=== PATIENT | male | born 1985 | race Caucasian/White ===

== ENCOUNTER 2017-12-18 15:47 | Emergency (ER) | payer OTHER ==
[2017-12-18 16:02] VITALS: RESP 18; TEMP 98.5
[2017-12-18] MEDS ORDERED: predniSONE 50 MG TAB PO STA (16:36)
--- NOTE | 2017-12-18 16:42 | ED ---
General Adult HPI - General Chief complaint: ENT Stated complaint: Sore Throat Time Seen by Provider: 12/18/17 16:26 Source: patient, RN notes reviewed Mode of arrival: ambulatory Limitations: no limitations - History of Present Illness Initial comments: Patient is a 32-year-old male who presents emergency room today with chief complaint of sore throat that started this morning. Patient does admit that hurts when he swallows. He doesn't some pressure in the left ear. Patient denies any other complaints or symptoms. Patient denies any recent fever, chills , shortness of breath, chest pain, back pain, abdominal pain, nausea or vomiting , numbness or tingling, headaches or visual changes, or any other complaints. - Related Data Previous Rx's Medication Instructions Recorded Amoxicillin 500 mg PO Q8H 10 Days day 12/18/17 predniSONE 50 mg PO DAILY #3 tab 12/18/17 Allergies Allergy/AdvReac Type Severity Reaction Status Date / Time No Known Allergies Allergy Verified 12/18/17 16:26 Review of Systems ROS Statement: Those systems with pertinent positive or pertinent negative responses have been documented in the HPI. ROS Other: All systems not noted in ROS Statement are negative. Past Medical History Past Medical History: No Reported History Additional Past Medical History / Comment(s): Patient states his blood pressure is normally high, diastolic above 100. He does not have a PCP and doesn't take any meds for it. History of Any Multi-Drug Resistant Organisms: None Reported Past Surgical History: Cholecystectomy Past Anesthesia/Blood Transfusion Reactions: No Reported Reaction Past Psychological History: ADD/ADHD, Anxiety, Bipolar, Depression, PTSD Smoking Status: Current every day smoker Past Alcohol Use History: None Reported Past Drug Use History: Marijuana - Past Family History Mother Family Medical History: Hypertension Additional Family Medical History / Comment(s): Mental health issues. Father History Unknown: Yes General Exam - General Exam Comments Initial Comments: General: The patient is awake and alert, in no distress, and does not appear acutely ill. Eye: Pupils are equal, round and reactive to light, extra-ocular movements are intact. No nystagmus. There is normal conjunctiva bilaterally. No signs of icterus. Ears, nose, mouth and throat: There are moist mucous membranes and no oral lesions. Patient does have 2+ tonsils with positive exudate. Uvula midline. Patient swallows without any difficulty. Tolerating oral secretions. Neck: The neck is supple, there is no tenderness or JVD. Cardiovascular: There is a regular rate and rhythm. No murmur, rub or gallop is appreciated. Respiratory: Lungs are clear to auscultation, respirations are non-labored, breath sounds are equal. No wheezes, stridor, rales, or rhonchi. Musculoskeletal: Normal ROM, no tenderness. Strength 5/5. Sensation intact. Pulses equal bilaterally 2+. Neurological: A&O x 3. CN II-XII intact, There are no obvious motor or sensory deficits. Coordination appears grossly intact. Speech is normal. Skin: Skin is warm and dry and no rashes or lesions are noted. Psychiatric: Cooperative, appropriate mood & affect, normal judgment. Limitations: no limitations Course Vital Signs 12/18/17 16:00 Temperature 98.5 F Pulse Rate 90 Respiratory 18 Rate Blood Pressure 135/81 O2 Sat by Pulse 99 Oximetry Medical Decision Making - Medical Decision Making Patient will given dose of steroids here in the emergency room also started on antibiotics for strep throat infection Disposition Clinical Impression: Acute pharyngitis Disposition: HOME SELF-CARE Condition: Good Instructions: Strep Throat (ED) Additional Instructions: Please use medication as discussed. Please follow-up with family doctor in the next 2 days of symptoms have not improved. Please return to emergency room if the symptoms increase or worsen or for any other concerns. Prescriptions: Amoxicillin 500 mg PO Q8H 10 Days day predniSONE 50 mg PO DAILY #3 tab Referrals: None,Stated [Primary Care Provider] - 1-2 days Time of Disposition: 16:40
[2017-12-18] MEDS ORDERED: ACETAMINOPHEN TAB 500 MG TAB PO STA (17:33)
[2017-12-18] MEDS ORDERED: IBUPROFEN 600 MG TAB PO STA (17:33)
[2017-12-18 18:21] VITALS: BP 144/94; PULSE 86
== END 2017-12-18 18:17 | disposition home or self-care (01) ==
LOC: EC 15:47
DX: J02.9 Acute pharyngitis, unspecified (principal); F17.200 Nicotine dependence, unspecified, uncomplicated
CPT/HCPCS: 99283; J7512

== ENCOUNTER → 2018-04-04 | Outpatient (CLI) | payer OTHER ==
--- NOTE | 2018-04-04 10:21 | XR ---
EXAMINATION TYPE: XR foot complete LT, XR ankle complete LT DATE OF EXAM: 04/04/2018 CLINICAL HISTORY: Pain and swelling after football injury this a.m. TECHNIQUE: Frontal, lateral and oblique images of the left ankle and foot are obtained. COMPARISON: None FINDINGS: There is no acute fracture/dislocation evident in the left foot. The joint spaces in the left foot appear within normal limits. The overlying soft tissue appears unremarkable. There is no a cute fracture/dislocation evident in the left ankle. The ankle mortise appears within normal limits. There appears to be a subtle old well-corticated fracture deformity of the base of the fifth metatar marleny on the lateral oblique image of the foot only. This is not redemonstrated on any additional views and there is no corresponding lateral cortical disruption or lucency. IMPRESSION: There is no acute fracture or dislocation in the left foot or ankle. If there is persist ent pain repeat radiograph is recommended in 7-10 days to ensure no occult fracture.
== END | disposition home or self-care (01) ==
LOC: RADXRYALE 08:50
PROVIDERS: ATTEND Physician Assistant Medical
DX: M25.572 Pain in left ankle and joints of left foot (principal)

== ENCOUNTER 2018-05-24 09:53 | Emergency (ER) | payer OTHER ==
[2018-05-24 10:00] VITALS: TEMP 97.7
[2018-05-24] MEDS ORDERED: predniSONE 50 MG TAB PO STA (10:26)
[2018-05-24] MEDS ORDERED: ETODOLAC 400 MG TAB PO STA (10:29)
--- NOTE | 2018-05-24 10:53 | ED ---
Back Pain HPI - General Chief Complaint: Back Pain/Injury Stated Complaint: Back injury-[facility] Time Seen by Provider: 05/24/18 10:10 Source: patient, RN notes reviewed Limitations: no limitations - History of Present Illness Initial Comments: This is a 33-year-old male with a recent history of back pain who states he was at work this morning about 6 AM when he was pulling on something it was 50+ pounds he complains of pain and spasm to the left upper thoracic back he states it increases with movement and deep breathing no shortness breath however no fevers chills nausea vomiting sweats loss of function is upper or lower extremities no other modifying factors. MD Complaint: back pain, back injury - Related Data Home Medications Medication Instructions Recorded Confirmed Ibuprofen [Advil] 400 mg PO Q6HR PRN 05/24/18 05/24/18 Previous Rx's Medication Instructions Recorded Cyclobenzaprine [Flexeril] 10 mg PO TID #14 tab 05/24/18 Ibuprofen 800 mg PO Q6HR PRN #20 tablet 05/24/18 predniSONE 20 mg PO BID #10 tab 05/24/18 Allergies Allergy/AdvReac Type Severity Reaction Status Date / Time No Known Allergies Allergy Verified 05/24/18 10:11 Review of Systems ROS Statement: Those systems with pertinent positive or pertinent negative responses have been documented in the HPI. ROS Other: All systems not noted in ROS Statement are negative. Past Medical History Past Medical History: No Reported History Additional Past Medical History / Comment(s): Patient states his blood pressure is normally high, diastolic above 100. He does not have a PCP and doesn't take any meds for it. History of Any Multi-Drug Resistant Organisms: None Reported Past Surgical History: Cholecystectomy Past Anesthesia/Blood Transfusion Reactions: No Reported Reaction Past Psychological History: ADD/ADHD, Anxiety, Bipolar, Depression, PTSD Smoking Status: Current every day smoker Past Alcohol Use History: None Reported Past Drug Use History: Marijuana - Past Family History Mother Family Medical History: Hypertension Additional Family Medical History / Comment(s): Mental health issues. Father History Unknown: Yes General Exam - General Exam Comments Initial Comments: This is a well-developed well-nourished awake alert oriented 3 male Limitations: no limitations General appearance: alert, anxious Head exam: Present: atraumatic, normocephalic, normal inspection Eye exam: Present: normal appearance, PERRL, EOMI. Absent: scleral icterus, conjunctival injection, periorbital swelling ENT exam: Present: normal exam, mucous membranes moist Neck exam: Present: normal inspection, full ROM. Absent: tenderness, meningismus, lymphadenopathy Respiratory exam: Present: normal lung sounds bilaterally, chest wall tenderness (Tenderness palpation along the left paraspinous musculature to palpation along the scapula is down to the mid and lower thoracic paraspinous muscles no spinous process tenderness. No tenderness on the right no lumbar tenderness no sacral tenderness) Cardiovascular Exam: Present: regular rate, normal rhythm, normal heart sounds. Absent: systolic murmur, diastolic murmur, rubs, gallop, clicks GI/Abdominal exam: Present: normal bowel sounds Rectal exam: Present: deferred Extremities exam: Present: normal inspection, full ROM, normal capillary refill. Absent: tenderness, pedal edema, joint swelling, calf tenderness Back exam: Present: normal inspection Neurological exam: Present: alert, oriented X3, CN II-XII intact Psychiatric exam: Present: normal affect, normal mood Skin exam: Present: warm, dry, intact, normal color. Absent: rash Course Vital Signs 05/24/18 09:58 Temperature 97.7 F Pulse Rate 69 Respiratory 20 Rate Blood Pressure 118/82 O2 Sat by Pulse 98 Oximetry Medical Decision Making - Medical Decision Making I did discuss the findings with patient and family. Patient's presentation consistent with myofascial strain and muscle spasm. He'll be placed on appropriate medication. He did request a note for work requested that he can go back tomorrow I did caution him about using muscle relaxers well working or operating machinery. I did also demonstrate discuss stretching exercises with the patient. - Radiology Data Radiology results: report reviewed (I did review the imaging and report no acute findings.), image reviewed Disposition Clinical Impression: Mechanical back pain, Muscle strain Disposition: HOME SELF-CARE Condition: Good Instructions: Back Pain (ED), Muscle Spasm (ED) Prescriptions: Cyclobenzaprine [Flexeril] 10 mg PO TID #14 tab Ibuprofen 800 mg PO Q6HR PRN #20 tablet PRN Reason: Pain predniSONE 20 mg PO BID #10 tab Is patient prescribed a controlled substance at d/c from ED?: No Referrals: None,Stated [Primary Care Provider] - 1-2 days
--- NOTE | 2018-05-24 11:05 | XR ---
EXAMINATION TYPE: XR chest 2V DATE OF EXAM: 05/24/2018 COMPARISON: 10/18/2016 HISTORY: Chest pain TECHNIQUE: Frontal and lateral views of the chest are obtained. FINDINGS: There is no focal air space opacity. No evidence for pneumothorax. No pleural effusion. The cardiac silhouette size is within normal limits. The osseous structures are grossly intact. IMPRESSION: 1. No acute cardiopulmonary process.
[2018-05-24 11:43] VITALS: BP 133/71; PULSE 72; RESP 18
== END 2018-05-24 11:43 | disposition home or self-care (01) ==
LOC: EC 09:53
DX: S29.012A Strain of muscle and tendon of back wall of thorax, initial encounter (principal); R07.89 Other chest pain; F17.200 Nicotine dependence, unspecified, uncomplicated; X50.0XXA Overexertion from strenuous movement or load, initial encounter; Y99.0 Civilian activity done for income or pay
CPT/HCPCS: 71046; 99283; J7512

== ENCOUNTER 2018-10-22 23:24 | Emergency (ER) | payer OTHER ==
[2018-10-23] MEDS ORDERED: ONDANSETRON 4 MG/2 ML VIAL IVP STA (02:05)
--- NOTE | 2018-10-23 02:18 | ED ---
Nausea/Vomiting/Diarrhea HPI - General Chief complaint: Nausea/Vomiting/Diarrhea Stated complaint: NVD Time Seen by Provider: 10/23/18 02:04 Source: patient Mode of arrival: ambulatory Limitations: no limitations - History of Present Illness MD complaint: nausea, vomiting, diarrhea -: days(s) Description of Vomiting: watery Description of Diarrhea: water Associated Abdominal Pain: Yes Location: diffuse Quality: cramping Consistency: now resolved Improves with: none Worsens with: none Associated Symptoms: denies other symptoms - Related Data Home Medications Medication Instructions Recorded Confirmed Ibuprofen [Advil] 400 mg PO Q6HR PRN 05/24/18 05/24/18 Previous Rx's Medication Instructions Recorded Cyclobenzaprine [Flexeril] 10 mg PO TID #14 tab 05/24/18 Ibuprofen 800 mg PO Q6HR PRN #20 tablet 05/24/18 predniSONE 20 mg PO BID #10 tab 05/24/18 Ondansetron Odt [Zofran ODT] 4 mg PO Q8HR PRN #10 tab 10/23/18 Allergies Allergy/AdvReac Type Severity Reaction Status Date / Time No Known Allergies Allergy Verified 05/24/18 10:11 Review of Systems ROS Statement: Those systems with pertinent positive or pertinent negative responses have been documented in the HPI. ROS Other: All systems not noted in ROS Statement are negative. Constitutional: Denies: fever, chills, weakness Respiratory: Denies: cough, dyspnea Cardiovascular: Denies: chest pain, palpitations, syncope Gastrointestinal: Reports: abdominal pain, nausea, vomiting, diarrhea. Denies: constipation, hematemesis, melena, hematochezia Genitourinary: Denies: dysuria, hematuria Musculoskeletal: Denies: back pain Skin: Denies: rash Neurological: Denies: headache, weakness, numbness Hematological/Lymphatic: Denies: easy bleeding Past Medical History Past Medical History: No Reported History Additional Past Medical History / Comment(s): Patient states his blood pressure is normally high, diastolic above 100. He does not have a PCP and doesn't take any meds for it. History of Any Multi-Drug Resistant Organisms: None Reported Past Surgical History: Cholecystectomy Past Anesthesia/Blood Transfusion Reactions: No Reported Reaction Past Psychological History: ADD/ADHD, Anxiety, Bipolar, Depression, PTSD Smoking Status: Current every day smoker Past Alcohol Use History: None Reported Past Drug Use History: Marijuana - Past Family History Mother Family Medical History: Hypertension Additional Family Medical History / Comment(s): Mental health issues. Father History Unknown: Yes General Exam Limitations: no limitations General appearance: alert, in no apparent distress ENT exam: Present: mucous membranes dry Respiratory exam: Present: normal lung sounds bilaterally. Absent: respiratory distress, wheezes, rales, rhonchi, stridor Cardiovascular Exam: Present: regular rate, normal rhythm, normal heart sounds. Absent: systolic murmur, diastolic murmur, rubs, gallop GI/Abdominal exam: Present: soft. Absent: distended, tenderness, guarding, rebound, rigid Extremities exam: Present: normal capillary refill Back exam: Absent: CVA tenderness (R), CVA tenderness (L) Neurological exam: Present: alert Skin exam: Present: warm, dry, intact, normal color. Absent: rash Course Vital Signs 10/22/18 10/23/18 23:36 02:26 Temperature 97.7 F 99 F Pulse Rate 102 H 90 Respiratory 18 20 Rate Blood Pressure 130/94 134/74 O2 Sat by Pulse 98 97 Oximetry Disposition Clinical Impression: Gastroenteritis Disposition: HOME SELF-CARE Condition: Fair Instructions: Gastroenteritis (ED) Prescriptions: Ondansetron Odt [Zofran ODT] 4 mg PO Q8HR PRN #10 tab PRN Reason: Nausea Is patient prescribed a controlled substance at d/c from ED?: No Referrals: None,Stated [Primary Care Provider] - 1-2 days
[2018-10-23] MEDS ORDERED: ONDANSETRON ODT 4 MG TAB PO STA (02:19)
[2018-10-23 02:27] VITALS: BP 134/74; PULSE 90; RESP 20; TEMP 99
== END 2018-10-23 02:27 | disposition home or self-care (01) ==
LOC: EC 23:24
DX: K52.9 Noninfective gastroenteritis and colitis, unspecified (principal); F17.200 Nicotine dependence, unspecified, uncomplicated; Z90.49 Acquired absence of other specified parts of digestive tract
CPT/HCPCS: 99283

== ENCOUNTER 2020-03-02 09:05 | Emergency (ER) | payer OTHER ==
[2020-03-02 09:21] VITALS: RESP 16; TEMP 98.1
--- NOTE | 2020-03-02 10:16 | XR ---
EXAMINATION TYPE: XR chest 2V DATE OF EXAM: 03/02/2020 COMPARISON: 05/24/2018 HISTORY: Chest pain, nausea, shortness of breath, upper respiratory infection TECHNIQUE: Frontal and lateral views of the chest are obtained. FINDINGS: There is no focal air space opacity, pleural effusion, or pneumothorax seen. The cardiac silhouette size is within normal limits. The osseous structures are intact. IMPRESSION: No acute cardiopulmonary process.
--- NOTE | 2020-03-02 10:18 | ED ---
General Adult HPI - General Chief complaint: Upper Respiratory Infection Stated complaint: SOB/cough/dizziness Time Seen by Provider: 03/02/20 09:20 Source: patient Mode of arrival: ambulatory Limitations: no limitations - History of Present Illness Initial comments: The patient is a 35-year-old male with no past medical history who presents to the emergency department with reported nonproductive cough. He states that his symptoms started this morning. He admits to mild chest pain with inspiration. Denies sick contacts or similar symptoms. Denies fevers or chills. No abdominal pain or changes in bowel or bladder habits. Denies shortness of breath. Does work at [employer] in the [place]. He called his work today to state that he was not coming into work and they requested a work note. Patient does not have a primary care physician and therefore he came to the emergency department. Denies any additional symptoms include headache, visual changes, ripping or tearing sensation to his back. There are no other alleviating, precipitating or modifying factors - Related Data Home Medications Medication Instructions Recorded Confirmed Ibuprofen [Advil] 400 mg PO Q6HR PRN 05/24/18 05/24/18 Previous Rx's Medication Instructions Recorded Cyclobenzaprine [Flexeril] 10 mg PO TID #14 tab 05/24/18 Ibuprofen 800 mg PO Q6HR PRN #20 tablet 05/24/18 predniSONE [Deltasone] 20 mg PO BID #10 tab 05/24/18 Ondansetron Odt [Zofran ODT] 4 mg PO Q8HR PRN #10 tab 10/23/18 Allergies Allergy/AdvReac Type Severity Reaction Status Date / Time No Known Allergies Allergy Verified 03/02/20 09:20 Review of Systems ROS Statement: Those systems with pertinent positive or pertinent negative responses have been documented in the HPI. ROS Other: All systems not noted in ROS Statement are negative. Past Medical History Past Medical History: No Reported History Additional Past Medical History / Comment(s): Patient states his blood pressure is normally high, diastolic above 100. He does not have a PCP and doesn't take any meds for it. History of Any Multi-Drug Resistant Organisms: None Reported Past Surgical History: Cholecystectomy Past Anesthesia/Blood Transfusion Reactions: No Reported Reaction Past Psychological History: ADD/ADHD, Anxiety, Bipolar, Depression, PTSD Smoking Status: Current every day smoker Past Alcohol Use History: None Reported Past Drug Use History: Marijuana - Past Family History Mother Family Medical History: Hypertension Additional Family Medical History / Comment(s): Mental health issues. Father History Unknown: Yes General Exam Limitations: no limitations General appearance: alert, in no apparent distress Head exam: Present: atraumatic, normocephalic, normal inspection Eye exam: Present: normal appearance, PERRL, EOMI. Absent: scleral icterus, conjunctival injection, periorbital swelling ENT exam: Present: normal exam, mucous membranes moist Neck exam: Present: normal inspection. Absent: tenderness, meningismus, lymphadenopathy Respiratory exam: Present: normal lung sounds bilaterally. Absent: respiratory distress, wheezes, rales, rhonchi, stridor Cardiovascular Exam: Present: regular rate, normal rhythm, normal heart sounds. Absent: systolic murmur, diastolic murmur, rubs, gallop, clicks GI/Abdominal exam: Present: soft, normal bowel sounds. Absent: distended, tenderness, guarding, rebound, rigid Extremities exam: Present: normal inspection, full ROM, normal capillary refill. Absent: tenderness, pedal edema, joint swelling, calf tenderness Back exam: Present: normal inspection Neurological exam: Present: alert, oriented X3, CN II-XII intact Psychiatric exam: Present: normal affect, normal mood Skin exam: Present: warm, dry, intact, normal color. Absent: rash Course Vital Signs 03/02/20 03/02/20 03/02/20 09:17 09:37 10:43 Temperature 98.1 F Pulse Rate 78 81 Respiratory 16 16 16 Rate Blood Pressure 124/87 132/76 O2 Sat by Pulse 98 99 Oximetry EKG Findings - EKG Comments: EKG Findings:: EKG demonstrates a normal sinus rhythm and sinus arrhythmia. Ventricular rate is 73. FL interval 170. QRS 92. QTC 416. No acute ST segment elevations or depressions concerning for ischemic changes Medical Decision Making - Medical Decision Making Oliverio patient was placed into room 10. A thorough history and physical exam was performed. I did recommend chest x-ray and EKG. The patient refused stating he just wanted a work note to be off of work. I did stress to him because of his shortness of breath and chest pain that we at minimal to the chest x-ray and EKG. The patient did agree to this. Chest x-ray demonstrates no acute cardiopulmonary process. EKG demonstrates no acute changes. I discussed diagnosis, differential treatment options. I did write the patient for a note to be off of work. I informed him that he does have Covid symptoms he should isolate himself. Patient cannot be tested at this time as he does not require hospitalization. He understood this. If at any point he has any new or worsening symptoms he should return to the emergency room. Patient was then discharged home in stable condition Disposition Clinical Impression: Cough Disposition: HOME SELF-CARE Condition: Stable Instructions (If sedation given, give patient instructions): Bronchospasm (ED) Additional Instructions: I do recommend that you follow-up with your primary care doctor in order to obtain clearance to go back to work. If you have a cough, you should isolate yourself. Return to the ED for any new or worsening symptoms Is patient prescribed a controlled substance at d/c from ED?: No Referrals: None,Stated [Primary Care Provider] - 1-2 days Time of Disposition: 10:36
[2020-03-02 10:43] VITALS: BP 132/76; PULSE 81
== END 2020-03-02 10:42 | disposition home or self-care (01) ==
LOC: EC 09:05
DX: R05 Cough (principal); R06.02 Shortness of breath; R42 Dizziness and giddiness; R07.1 Chest pain on breathing; F17.200 Nicotine dependence, unspecified, uncomplicated; Z53.29 Procedure and treatment not carried out because of patient's decision for other reasons
CPT/HCPCS: 71046; 93005; 99285

== ENCOUNTER 2021-06-04 11:31 | Emergency (ER) | payer OTHER ==
[2021-06-04] MEDS ORDERED: SODIUM CHLORIDE 0.9% 1,000 ML IV STA (12:11)
--- NOTE | 2021-06-04 12:14 | ED ---
General Adult HPI - General Chief complaint: Nausea/Vomiting/Diarrhea Stated complaint: Cough/fever/sob Time Seen by Provider: 06/04/21 11:58 Source: patient Mode of arrival: ambulatory Limitations: no limitations - History of Present Illness Initial comments: Dictation was produced using [employer] dictation software. please excuse any grammatical, word or spelling errors. Chief Complaint: 36-year-old male presents with cough, congestion and diarrhea History of Present Illness: 36-year-old male he is had 2-3 days of cough, congestion, fever, vomiting and diarrhea. Patient states that there is illness at school into the hospital. His son has similar symptoms. Patient was tested for coital spotting be negative. Patient states that he's been feeling under the weather prompt him to come to the emergency department. States that his fever for the most part has been improving. He has been taking any medications at home. Denies any abdominal pain. There is nonbilious nonbloody. Emesis also spondylosis nonbloody. The ROS documented in this emergency department record has been reviewed and confirmed by me. Those systems with pertinent positive or negative responses have been documented in the HPI. All other systems are other negative and/or noncontributory. PHYSICAL EXAM: General Impression: Alert and oriented x3, not in acute distress HEENT: Normocephalic atraumatic, extra-ocular movements intact, pupils equal and reactive to light bilaterally, mucous membranes moist, inflamed tonsils bilaterally with no exudates Cardiovascular: Heart regular rate and rhythm Chest: Able to complete full sentences, no retractions, no tachypnea Abdomen: abdomen soft, non-tender, non-distended, no organomegaly Musculoskeletal: Pulses present and equal in all extremities, no peripheral edema Motor: no focal deficits noted Neurological: CN II-XII grossly intact, no focal motor or sensory deficits noted Skin: Intact with no visualized rashes Psych: Normal affect and mood ED course: 6-year-old now presents with clinical presentation consistent with viral syndrome. Vital signs upon arrival are within acceptable limits. Rapid strep, for panel virus PCR is negative for flu, RSV and coronavirus. Chest x-ray is nonacute. Patient will be discharged. - Related Data Home Medications Medication Instructions Recorded Confirmed No Known Home Medications 06/04/21 06/04/21 Allergies Allergy/AdvReac Type Severity Reaction Status Date / Time No Known Allergies Allergy Verified 06/04/21 13:32 Review of Systems ROS Statement: Those systems with pertinent positive or pertinent negative responses have been documented in the HPI. ROS Other: All systems not noted in ROS Statement are negative. Past Medical History Past Medical History: Asthma Additional Past Medical History / Comment(s): Patient states his blood pressure is normally high, diastolic above 100. He does not have a PCP and doesn't take any meds for it. History of Any Multi-Drug Resistant Organisms: None Reported Past Surgical History: Cholecystectomy Past Anesthesia/Blood Transfusion Reactions: No Reported Reaction Past Psychological History: ADD/ADHD, Anxiety, Bipolar, Depression, PTSD Smoking Status: Former smoker Past Alcohol Use History: None Reported Past Drug Use History: Marijuana - Past Family History Mother Family Medical History: Hypertension Additional Family Medical History / Comment(s): Mental health issues. Father History Unknown: Yes General Exam Limitations: no limitations Course Vital Signs 06/04/21 11:47 Temperature 97.4 F L Pulse Rate 76 Respiratory 20 Rate Blood Pressure 129/96 O2 Sat by Pulse 95 Oximetry Medical Decision Making - Lab Data Lab Results 06/04/21 06/04/21 Range/Units 12:25 12:25 Influenza Type A (PCR) Not Detected (Not Detectd) Influenza Type B (PCR) Not Detected (Not Detectd) RSV (PCR) Not Detected (Not Detectd) SARS-CoV-2 (PCR) Not Detected (Not Detectd) Group A Strep Rapid Negative (Negative) Disposition Clinical Impression: Viral syndrome Disposition: HOME SELF-CARE Condition: Good Instructions (If sedation given, give patient instructions): Viral Syndrome (ED) Is patient prescribed a controlled substance at d/c from ED?: No Referrals: Vini Delgadillo MD [REFERRING] - 1-2 days
[2021-06-04 12:39] VITALS: TEMP 97.4
--- NOTE | 2021-06-04 13:21 | XR ---
EXAMINATION TYPE: XR chest 1V portable DATE OF EXAM: 06/04/2021 COMPARISON: 03/02/20 HISTORY: Chest pain TECHNIQUE: Single frontal view of the chest is obtained. FINDINGS: There is no focal air space opacity, pleural effusion, or pneumothorax seen. The cardiac silhouette size is within normal limits. The osseous structures are intact. IMPRESSION: 1. No acute process.
[2021-06-04 14:03] VITALS: BP 132/79; PULSE 80; RESP 18
== END 2021-06-04 14:02 | disposition home or self-care (01) ==
LOC: EC 11:31
DX: B34.9 Viral infection, unspecified (principal); J45.909 Unspecified asthma, uncomplicated; F31.9 Bipolar disorder, unspecified; F41.9 Anxiety disorder, unspecified; F90.9 Attention-deficit hyperactivity disorder, unspecified type; F12.90 Cannabis use, unspecified, uncomplicated; Z20.822 Contact with and (suspected) exposure to COVID-19; Z87.891 Personal history of nicotine dependence
CPT/HCPCS: 71045; 87081; 87430; 87636; 96360; 96361; 99285